=== PATIENT | male | born 1990 | race Caucasian/White ===

== ENCOUNTER 2021-02-09 07:49 | Emergency (ER) | payer SELFPAY ==
[~2021-02-09] VITALS: Ht 175.3 cm; Wt 86.2 kg
[2021-02-09 07:51] VITALS: BP 183/108
--- NOTE | 2021-02-09 07:57 | NUR ---
Ethan castro in [facility] - 02/09/21 at 0811 by [email or web address] PATIENT AMBULATED TO BED 5.
--- NOTE | 2021-02-09 08:00 | NUR ---
Patient ambulated to bed 5. RN evaluating the patient at bedside.
[2021-02-09] MEDS: ONDANSETRON 4 MG/2 ML VIAL IVP ONE (08:28)
[2021-02-09] MEDS: FAMOTIDINE 20 MG/2 ML VIAL IVP ONE (08:28)
[2021-02-09] MEDS: NACL 0.9% 1,000 ML IV SCH (08:31)
[2021-02-09 08:33] LABS: BASOPHILS # (AUTO) 0.1 K/uL (0.00-0.22); BASOPHILS % (AUTO) 0.5 % (0.0-2.0); EOSINOPHILS % (AUTO) 0.1 % (0.0-4.0); HEMATOCRIT 46.6 % (36-52); HEMOGLOBIN 16.4 g/dL (12.0-18.0); LYMPHOCYTES % (AUTO) 8.7 % (20.5-51.1); MEAN CORPUSCULAR HEMOGLOBIN 29 pg (27-31); MEAN CORPUSCULAR HGB CONC 35 g/dL (33-37); MONOCYTES # (AUTO) 0.8 K/uL (0.8-1.0); MONOCYTES % (AUTO) 7.2 % (1.7-9.3); NEUTROPHILS # (AUTO) 9.1 K/uL (1.8-7.7); NEUTROPHILS % (AUTO) 83.5 % (42.2-75.2); PLATELET COUNT (AUTO) 340 K/uL (140-450); RED BLOOD CELL COUNT(AUTO) 5.62 MIL/uL (4.20-6.10); RED CELL DISTRIBUTION WIDTH 13.8 % (11.6-13.7)
--- NOTE | 2021-02-09 08:33 | NUR ---
30YO M PRESENTS TO ED WITH VOMITING, INTERMITTENT MID ABD PAIN X 2 WEEKS. PT ASLO COMPLAINS OF FACIAL NUMBNESS. ADMITS TO SMOKING WEED FOR 10 YEARS AND STOPPING 2 WEEKS AGO. DENIES DIARRHEA, BLOOD IN STOOL. DENIES LOSS OF TASTE, CHEST PAIN. DENIES FLU-LIKE SYMPTOMS. IN ED, VSS. CLEAR BREATH SOUNDS. ABDOMEN SOFT, NON-TENDER. PT POSITIONED COMFORTABLY IN BED WITH 2 SIDERAILS UP. ERMD MADE AWARE OF PT STATUS. PMH: NONE NKA
[2021-02-09 09:07] LABS: ALBUMIN 4.3 g/dL (3.4-5.0); ANION GAP 13.9 (8-16); CARBON DIOXIDE 28.1 mmol/L (21-32); CREATININE 1.1 mg/dL (0.6-1.3); TOTAL BILIRUBIN 1.8 mg/dL (0.0-1.0)
[2021-02-09] MEDS ORDERED: FAMO-92 PO (09:32)
[2021-02-09] MEDS: MAGNESIUM OXIDE 400 MG TAB PO ONE (09:32)
[2021-02-09] MEDS: POTASSIUM CHLORIDE 10 MEQ TABER PO ONE (09:32)
[2021-02-09] MEDS ORDERED: ONDA-24 SL (09:32)
[2021-02-09 09:55] VITALS: BP 183/108
--- NOTE | 2021-02-09 09:56 | NUR ---
Patient discharged with v/s stable. Written and verbal after care instructions given and explained. Patient alert, oriented and verbalized understanding of instructions. Ambulatory with steady gait. All questions addressed prior to discharge. ID band removed. Patient advised to follow up with PMD. Rx of zofran, famotidine given. Patient educated on indication of medication including possible reaction and side effects. Opportunity to ask questions provided and answered.
== END 2021-02-09 09:20 | disposition home or self-care (01) ==
LOC: MED 07:49
DX: R11.10 Vomiting, unspecified (principal); R03.0 Elevated blood-pressure reading, without diagnosis of hypertension; R10.10 Upper abdominal pain, unspecified; F12.90 Cannabis use, unspecified, uncomplicated; Z79.899 Other long term (current) drug therapy
CPT/HCPCS: 36415; 80053; 83690; 85025; 96361; 96374; 96375; 99284; J2405; J3490; J7030